=== PATIENT | male | born 1940 | race Caucasian/White ===

== ENCOUNTER 2016-11-15 13:39 | Emergency (ER) | payer OTHER ==
[~2016-11-15] VITALS: Ht 175.3 cm; Wt 83.0 kg
[~2016-11-15 13:39] MED LIST: ACID1TAB7 PO; ALBU0.63 NEB; ALBU6.7H INH; ASPI-496 PO; ERGO500017 PO; FAMO-79 PO; FINA5TAB PO; FINA5TAB4 PO; FLAX1000 PO; FLUO20CA19 PO; FLUT1DIS3 INH; GUAI5SYR PO; KORE100C PO; LEVO750T26 PO; MULT-717 PO; NIAC250T7 PO; OMEG500C PO; PRED10TA PO; PRED20TA PO; ROYAL JELLY PO; TAMS-11 PO; TAMS0.4C2 PO; TIOT18CA INH; VITA1CAP7 PO
[2016-11-15] MEDS ORDERED: SODIUM CHLORIDE FLUSH 10ML SYR IVF ONE (14:30)
[2016-11-15 14:45] LABS: BLOOD UREA NITROGEN 14 mg/dL (7-18)
[2016-11-15 14:49] LABS: IS PT STATUS REG ER OR PRE ER? YES
[2016-11-15 15:09] VITALS: BP 132/88
== END 2016-11-15 16:46 | disposition home or self-care (01) ==
LOC: ED 16:34
DX: J44.1 Chronic obstructive pulmonary disease with (acute) exacerbation (principal); R06.00 Dyspnea, unspecified
CPT/HCPCS: 36415; 71010; 80048; 82040; 83880; 84484; 85025; 85379; 93005; 99285; J7512

== ENCOUNTER 2017-12-17 09:08 | Day surgery (SDC) | payer OTHER ==
[~2017-12-17] VITALS: Ht 174.5 cm; Wt 77.4 kg
[2017-12-17 10:03] VITALS: BP 95/58
[2017-12-17] MEDS ORDERED: LACTATED RINGERS 1,000 ML IV SCH (10:06)
[2017-12-17] MEDS ORDERED: PROPOFOL 10 MG/ML, 20ML ONE (10:24)
[2017-12-17] MEDS ORDERED: ONDANSETRON 2MG/ML, 2ML IV PRN (11:00)
[2017-12-17] MEDS ORDERED: ALBUTEROL/IPRATROPIUM 2.5MG/0.5MG, 3 ML NPPB PRN (11:00)
[2017-12-17] MEDS ORDERED: ACETAMINOPHEN 325 MG TABLET PO PRN (11:00)
[2017-12-17] MEDS ORDERED: OXYcodone 5 MG/5 ML ORAL.SOL UDC PO PRN (11:00)
== END 2017-12-17 13:10 ==
LOC: OUT 09:08
PROVIDERS: ATTEND Internal Medicine Geriatric Medicine
DX: Z12.11 Encounter for screening for malignant neoplasm of colon (principal); D12.4 Benign neoplasm of descending colon; K22.70 Barrett's esophagus without dysplasia; K21.9 Gastro-esophageal reflux disease without esophagitis; J44.9 Chronic obstructive pulmonary disease, unspecified; J43.9 Emphysema, unspecified; E78.5 Hyperlipidemia, unspecified; N40.0 Benign prostatic hyperplasia without lower urinary tract symptoms; F41.9 Anxiety disorder, unspecified; G89.29 Other chronic pain; F17.210 Nicotine dependence, cigarettes, uncomplicated; Z98.890 Other specified postprocedural states; Z86.010 Personal history of colon polyps; Z79.899 Other long term (current) drug therapy
CPT/HCPCS: 43239; 45385; 88305; J2704; J7120

== ENCOUNTER → 2018-01-03 | Outpatient (CLI) | payer OTHER | END | disposition home or self-care (01) | LOC: CFH 13:22 | PROVIDERS: ATTEND Internal Medicine Cardiovascular Disease | DX: I35.8 Other nonrheumatic aortic valve disorders (principal); R06.02 Shortness of breath; Z87.891 Personal history of nicotine dependence | CPT/HCPCS: 93306 ==

== ENCOUNTER → 2018-01-06 | Outpatient (CLI) | payer OTHER ==
[~2018-01-06] MED LIST changes: +REGADENOSON 0.4 MG/5 ML SYRINGE ONE
== END | disposition home or self-care (01) ==
LOC: CFH 11:40
PROVIDERS: ATTEND Internal Medicine Cardiovascular Disease
DX: R94.31 Abnormal electrocardiogram [ECG] [EKG] (principal); R07.9 Chest pain, unspecified
CPT/HCPCS: 78452; 93017; A9502; J2785

== ENCOUNTER 2018-02-12 21:18 | Emergency (ER) | payer OTHER ==
[~2018-02-12] VITALS: Ht 174 cm; Wt 78.7 kg
[~2018-02-12 21:18] MED LIST changes: -REGADENOSON 0.4 MG/5 ML SYRINGE ONE
[2018-02-12] MEDS ORDERED: SODIUM CHLORIDE 0.9% 1,000ML IVBOLUS ONE (22:30)
[2018-02-12] MEDS ORDERED: SODIUM CHLORIDE FLUSH 10ML SYR IVF ONE (22:30)
[2018-02-12 22:36] LABS: BASOPHILS # (AUTO) 0.07 x10^3/uL (0-0.1); BASOPHILS % (AUTO) 1 % (0-1); EOSINOPHILS # (AUTO) 0.27 x10^3/uL (0-0.4); EOSINOPHILS % (AUTO) 2 % (1-7); LYMPHOCYTES # (AUTO) 1.71 x10^3/uL (1-3.4); LYMPHOCYTES % (AUTO) 13 % (22-44); MD NO; MEAN CORPUSCULAR HEMOGLOBIN 29.6 pg (27.5-34.5); MEAN CORPUSCULAR VOLUME 89.8 fL (81-97); MEAN PLATELET VOLUME 7.6 fL (7.4-10.4); MONOCYTES # (AUTO) 1.28 x10^3/uL (0.2-0.8); MONOCYTES % (AUTO) 10 % (2-9); NEUTROPHILS # (AUTO) 9.57 x10^3/uL (1.8-6.8); NEUTROPHILS % (AUTO) 74 % (42-75); PLATELET COUNT 510 x10^3/uL (130-400); RED BLOOD COUNT 4.15 x10^6/uL (4.38-5.82); RED CELL DISTRIBUTION WIDTH 13.6 % (9.4-14.8)
[2018-02-12 22:47] LABS: INTERNATIONAL NORMALIZED RATIO 1.04 (0.93-1.1); PROTHROMBIN TIME 10.8 Seconds (9.6-11.5)
[2018-02-12 22:49] LABS: ALBUMIN 2.3 g/dL (3.4-5.0); ANION GAP 7 mmol/L (5-15); CALCIUM 8.6 mg/dL (8.5-10.1); CHLORIDE 106 mmol/L (98-107)
[2018-02-12 22:53] LABS: ALANINE AMINOTRANSFERASE 35 U/L (12-78); ALKALINE PHOSPHATASE 62 U/L (45-117); BILIRUBIN,TOTAL 0.4 mg/dL (0.2-1.0); CREATININE 1.29 mg/dL (0.7-1.3); TOTAL PROTEIN 6.1 g/dL (6.4-8.2)
[2018-02-12] MEDS ORDERED: OMNIPAQUE 350 MG/ML, 100ML BOTTLE ONE (23:55)
[2018-02-13 01:10] VITALS: BP 114/54
== END 2018-02-13 02:06 | disposition home or self-care (01) ==
LOC: ED 02-13 00:45
DX: K92.2 Gastrointestinal hemorrhage, unspecified (principal); D64.9 Anemia, unspecified; J44.9 Chronic obstructive pulmonary disease, unspecified
CPT/HCPCS: 36415; 74177; 80053; 85025; 85610; 85730; 86850; 86900; 96360; 99285; J7030; Q9967

== ENCOUNTER 2019-05-15 12:33 | Outpatient (CLI) | payer MEDICARE ==
[~2019-05-15 12:33] MED LIST changes: -ALBU6.7H INH; +ALBU6.7H8 INH
[2019-05-15] MEDS ORDERED: OMEG-133 PO (13:42)
[2019-05-15] MEDS ORDERED: OMEP40CA42 PO (13:42)
== END 2019-05-15 23:59 | disposition home or self-care (01) ==
LOC: STAR 12:33
PROVIDERS: ATTEND Internal Medicine Geriatric Medicine
DX: K21.9 Gastro-esophageal reflux disease without esophagitis (principal); K92.1 Melena; I45.10 Unspecified right bundle-branch block
CPT/HCPCS: 93005

== ENCOUNTER 2019-05-19 12:13 | Day surgery (SDC) | payer MEDICARE ==
[~2019-05-19] VITALS: Ht 175.3 cm; Wt 76.0 kg
[~2019-05-19 12:13] MED LIST changes: +OMEG-133 PO; +OMEP40CA42 PO
[2019-05-19] MEDS ORDERED: LACTATED RINGERS 1,000 ML IV SCH (12:44)
[2019-05-19 12:53] VITALS: BP 97/63
[2019-05-19] MEDS ORDERED: LIDOCAINE-MPF 1%, 2ML INFIL ONE (13:00)
[2019-05-19] MEDS ORDERED: PROPOFOL 10 MG/ML, 20ML ONE (13:02)
[2019-05-19] MEDS ORDERED: FENTANYL PF 100 MCG/2ML ONE (13:03)
[2019-05-19] MEDS ORDERED: MIDAZOLAM 1 MG/ML, 2ML ONE (13:03)
[2019-05-19] MEDS ORDERED: ACETAMINOPHEN 325 MG TABLET PO PRN (13:30)
[2019-05-19] MEDS ORDERED: FENTANYL PF 100 MCG/2ML IV PRN (13:30)
[2019-05-19] MEDS ORDERED: ONDANSETRON 2MG/ML, 2ML IV PRN (13:30)
[2019-05-19] MEDS ORDERED: ALBUTEROL/IPRATROPIUM 2.5MG/0.5MG, 3 ML NPPB PRN (13:30)
[2019-05-19] MEDS ORDERED: hydrALAzine 20 MG/ML, 1ML IV PRN (13:30)
[2019-05-19] MEDS ORDERED: HYDROmorphone 2 MG/ML, 1ML IVPush PRN (13:30)
[2019-05-19] MEDS ORDERED: OXYcodone 5 MG/5 ML ORAL.SOL UDC PO PRN (13:30)
[2019-05-19] MEDS ORDERED: MEPERIDINE/PF 25MG/ML,1ML IVPush PRN (13:30)
== END 2019-05-19 15:10 | disposition home or self-care (01) ==
LOC: OUT 12:13
PROVIDERS: ATTEND Internal Medicine Geriatric Medicine
DX: Z09 Encounter for follow-up examination after completed treatment for conditions other than malignant neoplasm (principal); D12.3 Benign neoplasm of transverse colon; K57.30 Diverticulosis of large intestine without perforation or abscess without bleeding; K22.70 Barrett's esophagus without dysplasia; K21.9 Gastro-esophageal reflux disease without esophagitis; I10 Essential (primary) hypertension; J44.9 Chronic obstructive pulmonary disease, unspecified; F41.9 Anxiety disorder, unspecified; Z86.010 Personal history of colon polyps
CPT/HCPCS: 43239; 45380; 88305; J2250; J2704; J3010; J7120

== ENCOUNTER 2020-01-20 13:19 | Inpatient (IN) | payer MEDICARE ==
[~2020-01-20] VITALS: Ht 175.3 cm; Wt 78.0 kg
[2020-01-20] MEDS ORDERED: SODIUM CHLORIDE FLUSH 10ML SYR IVF ONE (14:00)
[2020-01-20] MEDS ORDERED: ASPIRIN 81 MG TABLET CHEW PO ONE (14:00)
[2020-01-20] MEDS ORDERED: DILTIAZEM 5 MG/ML, 5ML IV ONE (14:00)
[2020-01-20] MEDS ORDERED: SODIUM CHLORIDE 0.9% 1,000ML IVBOLUS ONE (14:00)
[2020-01-20] MEDS ORDERED: DILTIAZEM 5 MG/ML, 5ML ONE (14:04)
[2020-01-20] MEDS ORDERED: ASPIRIN 81 MG TABLET CHEW ONE (14:04)
[2020-01-20 14:15] LABS: MEAN CORPUSCULAR HEMOGLOBIN 29.3 pg (27.5-34.5); MEAN CORPUSCULAR HGB CONC 31.9 g/dL (33.2-36.2); MEAN CORPUSCULAR VOLUME 91.7 fL (81-97); MEAN PLATELET VOLUME 7.7 fL (7.4-10.4); PLATELET COUNT 396 x10^3/uL (130-400); RED BLOOD COUNT 5.74 x10^6/uL (4.38-5.82); RED CELL DISTRIBUTION WIDTH 14.9 % (9.4-14.8)
[2020-01-20 14:23] LABS: INTERNATIONAL NORMALIZED RATIO 0.96 (0.93-1.1); PROTHROMBIN TIME 9.9 Seconds (9.6-11.5)
[2020-01-20 14:26] LABS: ALBUMIN 4.1 g/dL (3.4-5.0); ANION GAP 10 mmol/L (5-15); CALCIUM 9.4 mg/dL (8.5-10.1); CHLORIDE 101 mmol/L (98-107)
[2020-01-20] MEDS ORDERED: BUDE10.2 INH (14:27)
[2020-01-20 14:33] LABS: ALANINE AMINOTRANSFERASE 22 U/L (12-78); ALKALINE PHOSPHATASE 75 U/L (45-117); BILIRUBIN,TOTAL 0.6 mg/dL (0.2-1.0); CREATININE 1.37 mg/dL (0.7-1.3); FREE T4 (FREE THYROXINE) 0.98 ng/dL (0.76-1.46); TOTAL PROTEIN 8.1 g/dL (6.4-8.2); TROPONIN I < 0.015 ng/mL (0.000-0.045)
[2020-01-20 14:51] LABS: MD YES
[2020-01-20 14:54] LABS: BAND#(MANUAL) 0.95 x10^3/uL; BANDS%(MANUAL) 7 % (0-7); LYMPH#(MANUAL) 0.95 x10^3/uL (1-3.4); LYMPHS% (MANUAL) 7 % (22-44); METAMYELOCYTES# (MANUAL) 0.14 x10^3/uL (0-0); METAMYELOCYTES% (MANUAL) 1 % (0-1); MONOS#(MANUAL) 1.22 x10^3/uL (0.3-2.7); MONOS% (MANUAL) 9 % (2-9); SEG#(MANUAL) 10.26 x10^3/uL (1.8-6.8); SEGS% (MANUAL) 76 % (42-75)
[2020-01-20 14:58] LABS: ANISOCYTOSIS 1+; OVALOCYTES 1+
[2020-01-20 14:59] LABS: <PLATELET ESTIMATE> ADEQUATE; LARGE PLATELETS 1+
[2020-01-20] MEDS ORDERED: NICOTINE 14MG/24 HR PATCH.TD24 TD ONE (15:30)
[2020-01-20] MEDS ORDERED: hydrALAzine 20 MG/ML, 1ML IVPush PRN (15:30)
[2020-01-20] MEDS ORDERED: SODIUM CHLORIDE FLUSH 10ML SYR IVF PRN (15:30)
[2020-01-20] MEDS ORDERED: PIPERACILLIN/TAZO/PMX 3.375GM 50 ML IV SCH (15:30)
[2020-01-20] MEDS ORDERED: NITROGLYCERIN 0.4 MG BOTTLE (25 TABS) SL PRN (15:30)
[2020-01-20] MEDS ORDERED: ONDANSETRON 2MG/ML, 2ML IVPush PRN (15:30)
[2020-01-20] MEDS ORDERED: ACETAMINOPHEN 325 MG TABLET PO PRN (15:30)
[2020-01-20] MEDS ORDERED: ALBUTEROL/IPRATROPIUM 2.5MG/0.5MG, 3 ML ONE (15:48)
[2020-01-20] MEDS ORDERED: NICOTINE 14MG/24 HR PATCH.TD24 ONE (15:48)
[2020-01-20] MEDS ORDERED: PIPERACILLIN/TAZO/PMX 3.375GM 50 ML ONE (15:48)
[2020-01-20] MEDS: ALBUTEROL/IPRATROPIUM 2.5MG/0.5MG, 3 ML HHN SCH ×2 (15:58→21:30)
[2020-01-20] MEDS ORDERED: DILTIAZEM 125 MG in SODIUM CHLORIDE 0.9% 100 ML IV SCH (16:11)
[2020-01-20] MEDS ORDERED: BUTALB/APAP/CAFFEINE 50MG/325MG/40MG PO PRN (16:30)
[2020-01-20 16:35] LABS: TROPONIN I 0.023 ng/mL (0.000-0.045)
[2020-01-20] MEDS ORDERED: ENOXAPARIN 80 MG/0.8 ML SQ SCH (17:30)
[2020-01-20 17:36] VITALS: BP 92/57
[2020-01-20] MEDS: FAMOTIDINE 20 MG TABLET PO SCH (21:00)
[2020-01-20] MEDS ORDERED: BUDESONIDE 0.5 MG/2 ML INHA INH SCH (21:00)
[2020-01-20] MEDS ORDERED: FAMOTIDINE 20 MG/2 ML IVPush SCH (21:00)
[2020-01-20 21:26] VITALS: BP 100/59
[2020-01-20 21:27] LABS: TROPONIN I 0.021 ng/mL (0.000-0.045)
[2020-01-21] MEDS: PIPERACILLIN/TAZO/PMX 3.375GM 50 ML IV SCH ×3 (01:21→16:10)
[2020-01-21 01:51] VITALS: BP 119/74
[2020-01-21 05:05] LABS: MEAN CORPUSCULAR HEMOGLOBIN 29.9 pg (27.5-34.5); MEAN CORPUSCULAR HGB CONC 33.2 g/dL (33.2-36.2); MEAN CORPUSCULAR VOLUME 90.1 fL (81-97); MEAN PLATELET VOLUME 7.8 fL (7.4-10.4); PLATELET COUNT 351 x10^3/uL (130-400); RED BLOOD COUNT 4.66 x10^6/uL (4.38-5.82); RED CELL DISTRIBUTION WIDTH 14.4 % (9.4-14.8)
[2020-01-21 05:11] LABS: ANION GAP 7 mmol/L (5-15); CHLORIDE 109 mmol/L (98-107); CREATININE 1.08 mg/dL (0.7-1.3)
[2020-01-21] MEDS: METOPROLOL SUCCINATE 25 MG TAB.ER.24H PO SCH (05:41)
[2020-01-21 06:10] LABS: BASOPHILS # (AUTO) 0.04 x10^3/uL (0-0.1); BASOPHILS % (AUTO) 0 % (0-1); EOSINOPHILS # (AUTO) 0.48 x10^3/uL (0-0.4); EOSINOPHILS % (AUTO) 4 % (1-7); LYMPHOCYTES # (AUTO) 1.59 x10^3/uL (1-3.4); LYMPHOCYTES % (AUTO) 12 % (22-44); MD SCAN; MONOCYTES # (AUTO) 1.51 x10^3/uL (0.2-0.8); MONOCYTES % (AUTO) 11 % (2-9); NEUTROPHILS # (AUTO) 9.77 x10^3/uL (1.8-6.8); NEUTROPHILS % (AUTO) 73 % (42-75)
[2020-01-21] MEDS: ALBUTEROL-IPRATROPIUM MDI INH INH PRN ×2 (06:25→08:27)
[2020-01-21 07:58] VITALS: BP 119/58
[2020-01-21] MEDS: FAMOTIDINE 20 MG TABLET PO SCH ×2 (08:27→20:40)
[2020-01-21] MEDS: TAMSULOSIN 0.4 MG CAP.ER.24H PO SCH (08:28)
[2020-01-21] MEDS: FINASTERIDE 5 MG TABLET PO SCH (08:28)
[2020-01-21 10:01] LABS: MICROSCOPIC AUTO
[2020-01-21] MEDS: TIOTROPIUM BROMIDE 18 MCG/INH INH SCH (11:15)
[2020-01-21 12:12] VITALS: BP 125/72
[2020-01-21 20:35] VITALS: BP 144/76
[2020-01-22] MEDS: PIPERACILLIN/TAZO/PMX 3.375GM 50 ML IV SCH ×3 (00:09→16:10)
[2020-01-22 01:29] VITALS: BP 127/79
[2020-01-22] MEDS: METOPROLOL SUCCINATE 25 MG TAB.ER.24H PO SCH (06:29)
[2020-01-22] MEDS: ALBUTEROL-IPRATROPIUM MDI INH INH PRN (06:39)
[2020-01-22 07:00] VITALS: BP 124/65
[2020-01-22] MEDS: FAMOTIDINE 20 MG TABLET PO SCH ×2 (08:36→21:00)
[2020-01-22] MEDS: FINASTERIDE 5 MG TABLET PO SCH (08:37)
[2020-01-22] MEDS: TAMSULOSIN 0.4 MG CAP.ER.24H PO SCH (08:37)
[2020-01-22] MEDS: TIOTROPIUM BROMIDE 18 MCG/INH INH SCH (08:37)
[2020-01-22] MEDS ORDERED: METO25TA91 PO (10:24)
[2020-01-22 11:30] VITALS: BP 105/67
[2020-01-22 14:01] VITALS: BP 106/55
[2020-01-22 15:09] VITALS: BP 102/56
[2020-01-22 19:45] VITALS: BP 108/69
[2020-01-23] MEDS: PIPERACILLIN/TAZO/PMX 3.375GM 50 ML IV SCH ×2 (00:14→08:49)
[2020-01-23 01:39] VITALS: BP 109/69
[2020-01-23 07:10] VITALS: BP 147/99
[2020-01-23] MEDS: FAMOTIDINE 20 MG TABLET PO SCH (08:21)
[2020-01-23] MEDS: FINASTERIDE 5 MG TABLET PO SCH (08:21)
[2020-01-23] MEDS: TAMSULOSIN 0.4 MG CAP.ER.24H PO SCH (08:22)
[2020-01-23] MEDS: TIOTROPIUM BROMIDE 18 MCG/INH INH SCH (08:22)
[2020-01-23] MEDS: METOPROLOL SUCCINATE 25 MG TAB.ER.24H PO SCH (08:22)
[2020-01-23] MEDS ORDERED: AMOX1TAB64 PO (13:05)
== END 2020-01-23 13:56 | disposition home or self-care (01) | DRG 189 ==
LOC: ED 13:55 → EDIP 15:15 → UNDOADMIN 15:31 → EDIP 15:31 → UNDOADMIN 15:48 → EDIP 15:48 → 5SO 17:13
PROVIDERS: ADMIT Hospitalist; ATTEND Family Medicine
DX: J96.21 Acute and chronic respiratory failure with hypoxia (principal); L03.115 Cellulitis of right lower limb; J98.11 Atelectasis; I48.91 Unspecified atrial fibrillation; F17.200 Nicotine dependence, unspecified, uncomplicated; J43.9 Emphysema, unspecified; R53.81 Other malaise
CPT/HCPCS: 36415; 71045; 80048; 80053; 81001; 83036; 83735; 84100; 84145; 84439; 84443; 84484; 85025; 85610; 85730; 87040; 87086; 93005; 93306; 93356; 96374; 99291; G0378; J2543; J7030

== ENCOUNTER → 2020-03-07 | Outpatient (CLI) | payer MEDICARE ==
[~2020-03-07] MED LIST changes: +AMOX1TAB64 PO; +BUDE10.2 INH; +METO25TA91 PO; +REGADENOSON 0.4 MG/5 ML SYRINGE ONE
== END | disposition home or self-care (01) ==
LOC: CFH 07:23
PROVIDERS: ATTEND Internal Medicine Cardiovascular Disease
DX: Z02.9 Encounter for administrative examinations, unspecified (principal)
CPT/HCPCS: J2785

== ENCOUNTER → 2020-05-30 | Outpatient (CLI) | payer MEDICARE ==
[~2020-05-30] MED LIST changes: -REGADENOSON 0.4 MG/5 ML SYRINGE ONE
[2020-05-30 15:12] LABS: BASOPHILS % (AUTO) 1 % (0-1); EOSINOPHILS % (AUTO) 16 % (1-7); LYMPHOCYTES % (AUTO) 9 % (22-44); MEAN CORPUSCULAR HGB CONC 33.8 g/dL (33.2-36.2); MEAN PLATELET VOLUME 7.5 fL (7.4-10.4); MONOCYTES % (AUTO) 13 % (2-9); NEUTROPHILS % (AUTO) 61 % (42-75); PLATELET COUNT 413 x10^3/uL (130-400)
[2020-05-30 15:15] LABS: MD NO
[2020-05-30 16:19] LABS: FOLATE LEVEL > 20.0 ng/mL (3.1-17.5)
== END | disposition home or self-care (01) ==
LOC: LAB 14:43
PROVIDERS: ATTEND Psychiatry & Neurology Neurology
DX: D51.8 Other vitamin B12 deficiency anemias (principal); F03.90 Unspecified dementia, unspecified severity, without behavioral disturbance, psychotic disturbance, mood disturbance, and anxiety
CPT/HCPCS: 36415; 82607; 82746; 85025; 86480; 86592

== ENCOUNTER → 2020-08-04 | Outpatient (CLI) | payer MEDICARE | END | disposition home or self-care (01) | LOC: CFH 14:56 | PROVIDERS: ATTEND Psychiatry & Neurology Neurology | DX: R41.3 Other amnesia (principal); F03.90 Unspecified dementia, unspecified severity, without behavioral disturbance, psychotic disturbance, mood disturbance, and anxiety | CPT/HCPCS: 70551 ==